=== PATIENT | male | born 1995 | race Caucasian/White ===

== ENCOUNTER 2019-02-24 03:01 | Emergency (ER) | payer BC ==
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
[2019-02-24] MEDS ORDERED: Diphtheria,Pertussis(Acell),Tetanus Vaccine 0.5 ML Syringe IM ONE (03:27)
[2019-02-24] MEDS ORDERED: Lidocaine 1% 10 ML MDV INJECT ONE (03:59)
[2019-02-24] MEDS ORDERED: Cephalexin 500 MG Cap PO ONE (04:58)
--- NOTE | 2019-02-25 07:27 | CT ---
Head CT Technique: Multiple axial sections through the brain were obtained. Intravenous contrast was not utilized. Comparison: No prior intracranial imaging is available. Findings: Ventricles along with basal cisterns and sulci over the convexities appear within normal limits for the patient's age. No abnormal parenchymal densities are seen. No evidence of intracranial hemorrhage. No midline shift or mass effect is seen. Nasal bone fracture is partially visualized. Small osteoma is noted within the right frontal sinus which is believed to be incidental. No acute calvarial abnormality is appreciated. Impression: 1. Partially visualized nasal bone fracture. 2. Other paranasal sinus finding as noted above believed to be incidental. 3. No acute intracranial abnormality is appreciated. Diagnostic code #3 This report was dictated in [place] Standard Time I agree with preliminary report from [facility], finalized on 02/24/19, 5:03 AM Central Time
--- NOTE | 2019-02-25 07:27 | CT ---
CT cervical spine Technique: Multiple axial sections were obtained from above C1 inferiorly to the bottom of T2. Reconstructed sagittal and coronal images were reviewed. Findings: Vertebral body heights and disc spaces are maintained. No fracture is identified. No bony central or bony neural foraminal stenosis is seen. No abnormal subluxation is seen on the reconstructed sagittal images. Impression: 1. Nothing acute is appreciated on CT study of the cervical spine. Diagnostic code #1 This report was dictated in [place] Standard Time I agree with preliminary report from [facility], finalized on 02/24/19, 5:30 AM Central Time
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
== END 2019-02-24 05:21 ==
LOC: JD.ED 03:01
DX: S02.2XXA Fracture of nasal bones, initial encounter for closed fracture (principal); S01.112A Laceration without foreign body of left eyelid and periocular area, initial encounter; S10.93XA Contusion of unspecified part of neck, initial encounter; Z23 Encounter for immunization; F17.210 Nicotine dependence, cigarettes, uncomplicated; Y04.8XXA Assault by other bodily force, initial encounter
CPT/HCPCS: 12011; 70450; 70486; 72125; 90471; 90715; 99285; A9270; J2001; 99283